=== PATIENT | male | born 1985 | race Caucasian/White ===

== ENCOUNTER 2016-10-13 12:00 | Emergency (ER) | payer SELFPAY ==
[~2016-10-13] VITALS: Ht 185.4 cm; Wt 94.8 kg
[~2016-10-13 12:00] MED LIST: ESOM20CA PO
[2016-10-13 12:04] VITALS: TEMP 36.9; Ht 185.4 cm; Wt 94.8 kg
[2016-10-13] MEDS ORDERED: XYLOCAINE 1%/SOD BICARB 20 ML VIAL INFIL ONE (12:45)
[2016-10-13] MEDS ORDERED: CEPH500C2 PO (13:12)
[2016-10-13] MEDS ORDERED: SULF800T23 PO (13:12)
[2016-10-13] MEDS ORDERED: VNTHFA/IN INH (13:14)
[2016-10-13] MEDS ORDERED: ACETAMINOPHEN 500 MG TAB PO STA (13:26)
[2016-10-13 13:37] VITALS: BP 132/76; PULSE 76; O2SAT 97
--- NOTE | 2016-10-16 09:39 | EMERGENCY ROOM VISIT NOTE ---
ED Visit Note First contact with patient: 12:08 CHIEF COMPLAINT: I have a boil on the back of my head.. HISTORY OF PRESENT ILLNESS: Mr. Sanchez is an 31-year-old white male who ambulates into the ED complaining of a possible abscess on the back of this incident. Patient reports approximately one week ago he noted a pimple-like lesion on the back of his hand. Initially there was no pain. He does report he squeezed the pimple multiple times and had some expression of pus like material. Over the last 3 days he noticed the area is slowly getting larger, more painful and tender. Currently he describes his discomfort as a pressure sensation. He rates his discomfort 7/10. Pain is nonradiating. The pain worsens with palpation. He has not identified any alleviating factors related to the pain. He has not been taken any medications for pain prior to arrival at the hospital. He denies any associated symptoms including fevers, chills, sweats, other skin eruptions, skin color changes, headaches, neck pain/stiffness, chest pain, shortness of breath, decreased appetite, abdominal/vomiting. Ongoing the patient's physical assessment his lungs sounds showed scattered coarse rhonchi and mild wheezing; ID asthma about this and he reports he had an upper respiratory tract infection going on the last few days. I did offer to assess him for his upper respiratory tract infection and he refused stating he had no insurance. He did report he would be able to get insurance quickly through his employer and follow-up with a primary care provider. I did offer treatment and he accepted formalin albuterol inhaler. REVIEW OF SYSTEMS: As noted above in History of Present Illness; 8 body systems were reviewed with the patient and found to be unremarkable unless noted above. PAST MEDICAL HISTORY: Lumbar back disease. CURRENT MEDICATIONS: Patient denies. ALLERGIES TO MEDICATION: Patient denies. SOCIAL HISTORY: Patient is currently employed; he feels safe in his home environment; he admits to tobacco and alcohol use. PHYSICAL EXAM: Vital Signs: Date Time Temp Pulse Resp B/P Pulse Ox O2 Delivery O2 Flow Rate FiO2 10/13/16 13:37 76 20 132/76 97 10/13/16 12:04 36.9 83 18 116/78 99 Room Air General: 31 year-old white male in mild distress due to pain, nontoxic appearing , afebrile and hemodynamically stable. Neurological: Awake, alert and oriented to person, place and time. Answering questions appropriately and following commands. Skin: Warm, dry and pink. Occipital scalp There is an indurated area in the occipital scalp which measures about 2.5 cm in diameter. It is fluctuant with pointing, but no drainage. There is a zone of inflammation around it but no lymphangitis. Thorax: Lungs sounds are wheezing and scattered coarse rhonchi. Equal bilaterally with symmetrical chest wall movement. No increased respiratory effort. Abdomen: Flat, soft and nontender. Positive bowel sounds in all quadrants. No guarding or rigidity. ED COURSE: Patient is assessed as noted above. Incision and Drainage: Location: Occipital scalp Verbal consent was obtained after the risks and benefits were explained. The skin was prepped with betadine and a sterile field set. The area surrounding the abscess was anesthetized with 6.7 ml of 1% buffered lidocaine. The abscess cavity was incised with a scalpel. Approximately 2 mL of purulent material was drained from the abscess and more was expressed. Aerobic cultures were obtained and are currently pending. The abscess cavity was sharply dissected with iris scissors to break up loculations and a small amount of additional purulent drainage was expressed. Copious irrigation was performed using sterile saline. The abscess cavity was cleaned out with a cotton tip applicator dipped in Betadine. Hemostasis was achieved. Iodoform gauze packing was inserted into the abscess. A sterile dressing was applied. No complications and the patient tolerated the procedure well. Patient was given 1 g of Tylenol by mouth for pain. Patient was educated about his condition and instructed on his treatment plan; he verbalized understanding and agreement with this plan. IMPRESSION: Abscess of the occipital scalp. Upper respiratory tract infection DISPOSITION: Patient discharged to home in stable condition; prior to departure he was reassessed and rated his discomfort 10/10. He was once again offered further evaluation of his lungs sounds and he refused. PLAN: Abscess Patient was encouraged to alternate ibuprofen and acetaminophen as needed for pain. Patient was prescribed Keflex 500 mg 4 times a day and Bactrim DS 2 times a day for 10 days. Patient was encouraged to keep his abscess area clean and dry. Patient was encouraged return the ED and 36-48 hours for recheck and packing removal. Patient was encouraged return the ED sooner for worsening/uncontrolled pain, fevers, increasing redness/swelling or any new/concerning symptoms. Cough Patient was prescribed an albuterol inhaler with spacers encouraged to use 2 puffs every 6 hours for 5 days and as needed. Patient was encouraged to follow-up as appropriate or return to the ED for worsening cough, worsening shortness of breath, fevers, coughing up blood or any new/concerning symptoms.
== END 2016-10-13 13:39 | disposition home or self-care (01) ==
LOC: C.EDB 12:06 → C.EDD 13:39
DX: L02.811 Cutaneous abscess of head [any part, except face] (principal); J06.9 Acute upper respiratory infection, unspecified; F17.200 Nicotine dependence, unspecified, uncomplicated

== ENCOUNTER 2016-10-15 11:06 | Emergency (ER) | payer SELFPAY ==
[~2016-10-15] VITALS: Ht 185.4 cm; Wt 96.1 kg
[~2016-10-15 11:06] MED LIST changes: +CEPH500C2 PO; -ESOM20CA PO; +SULF800T23 PO; +VNTHFA/IN INH
[2016-10-15 11:08] VITALS: BP 128/76; PULSE 68; TEMP 36.9; O2SAT 98; Ht 185.4 cm; Wt 96.1 kg
--- NOTE | 2016-10-15 11:35 | EMERGENCY ROOM VISIT NOTE ---
History Report prepared by Shanellibgiancarlo: Joe Altman Under the Supervision of: Dr. Jose De Jesus Mishra D.O. First contact with patient: 11:26 Chief Complaint: PACKING REMOVAL Stated Complaint: FOLLOW UP History of Present Illness The patient is a 31 year old male who presents to the Emergency Room for a packing removal encounter. The patient had an abscess drained on the back of his head two days ago. The patient denies any fevers or chills. He was prescribed Bactrim, which he did not fill because he could not afford it. The patient took leftover Amoxicillin at home. The patient also expresses concern over a swollen area around his eye wear he squeezed a pimple. Source of History: patient Onset: today Position: head Quality: other (packing removal) Associated Symptoms: No chills, No fevers Review of Systems See HPI for pertinent positives and negatives. A total of six systems were reviewed and were otherwise negative. Past Medical & Surgical Medical Problems: (1) Esophagitis Family History Cancer Diabetes mellitus Social History Smoking Status: Former Smoker Alcohol Use: occasionally Drug Use: none Marital Status: Housing Status: lives with family Occupation Status: employed Current/Historical Medications Scheduled Albuterol Hfa (Ventolin Hfa), 2 PUFFS INH QID Cephalexin Monohydrate (Keflex), 500 MG PO QID Sulfa/Trimethoprim (Bactrim Ds 800MG/160MG), 1 TAB PO BID Allergies Coded Allergies: No Known Allergies (Unverified , 10/15/16) Physical Exam Vital Signs Date Time Temp Pulse Resp B/P Pulse Ox O2 Delivery O2 Flow Rate FiO2 10/15/16 11:08 36.9 68 18 128/76 98 Room Air Physical Exam GENERAL: Awake, alert, well-appearing, in no distress HENT: 1 cm area with purulent brown drainage, packing in place. EYES: Infraorbital erythema and edema on the right side. Extraocular movements intact. Pupils equal round reactive to light. NECK: Supple. No nuchal rigidity. FROM. No JVD. RESPIRATORY: Clear to auscultation. CARDIAC: Regular rate, normal rhythm. Extremities warm and well perfused. Pulses equal. ABDOMEN: Soft, non-distended. No tenderness to palpation. No rebound or guarding. No masses. RECTAL: Deferred. MUSCULOSKELETAL: Chest examination reveals no tenderness. The back is symmetrical on inspection without obvious abnormality. There is no CVA tenderness to palpation. No joint edema. LOWER EXTREMITIES: Calves are equal size bilaterally and non-tender. No edema. No discoloration. NEURO: Normal sensorium. No sensory or motor deficits noted. SKIN: No rash or jaundice noted. Medical Decision & Procedures ED Course 1126: The patient was evaluated in room C3. A complete history and physical exam was performed. 1130: Packing removed. 1132: Discussed results and discharge instructions: He verbalized understanding and agreement. The patient is ready for discharge. Medical Decision Differential diagnosis includes wound recheck, packing removal, early cellulitis. Patient states to me that he has taken Amoxil he did not take the Bactrim that was prescribed is currently at the pharmacy as he stated he didn't have enough money. Patient also states that he popped a zit on the right side of his face and on exam there is a concern for infraorbital cellulitis that might be occurring however there is no evidence or orbital cellulitis at this time. I' ve instructed the patient that he needs to get the Bactrim filled as this will help his wound and will help the infection that's on his face. Scribe Attestation The scribe's documentation has been prepared under my direction and personally reviewed by me in its entirety. I confirm that the note above accurately reflects all work, treatment, procedures, and medical decision making performed by me. Departure Information Dispostion Home / Self-Care Referrals No Doctor, Assigned (PCP) Patient Instructions ED Folliculitis, ED Wound Care, My [facility] Additional Instructions Please start taking the Bactrim that was prescribed here. Continue wound care, continue to watch for signs of worsening infection right side of her face
== END 2016-10-15 11:37 | disposition home or self-care (01) ==
LOC: C.EDB 11:09 → C.EDC 11:37
DX: Z48.02 Encounter for removal of sutures (principal); K20.9 Esophagitis, unspecified; Z87.891 Personal history of nicotine dependence; Z79.899 Other long term (current) drug therapy; Z80.9 Family history of malignant neoplasm, unspecified; Z83.3 Family history of diabetes mellitus

== ENCOUNTER 2017-04-12 17:13 | Emergency (ER) | payer SELFPAY ==
[~2017-04-12] VITALS: Ht 185.4 cm; Wt 98.0 kg
[2017-04-12 17:52] VITALS: O2SAT 96
[2017-04-12] MEDS ORDERED: ALBUT/IPRATROP 3MG/0.5MG NEB 3 ML VIAL INH STA ×2 (18:19→19:33)
[2017-04-12] MEDS ORDERED: DEXAMETHASONE SOD INJ 10 MG/ML VIAL IV ONE (18:30)
--- NOTE | 2017-04-12 18:40 | DIAGNOSTIC IMAGING REPORT ---
CHEST ONE VIEW PORTABLE CLINICAL HISTORY: EVALUATE RESPIRATORY DISTRESS. DYSPNEA dyspnea COMPARISON STUDY: M 23/01/2011 FINDINGS: Poorly defined left midlung infiltrate. The lungs otherwise are clear. No evidence for cardiac enlargement. IMPRESSION: Poorly defined infiltrate left midlung The above report was generated using voice recognition software. It may contain grammatical, syntax or spelling errors. Electronically signed by: Raoul Gore M.D. 04/12/2017 6:38 PM Dictated Date/Time: 04/12/2017 6:38 PM
[2017-04-12 18:59] VITALS: Ht 185.4 cm; Wt 98.0 kg
[2017-04-12 19:24] LABS: BASO % 0.2 %; BASO ABS # 0.02 K/uL (0-0.2); COMPLETE YES; HEMATOCRIT 42.5 % (42-52); IG% 0.3 %; LYMPH % 14.8 %; LYMPH ABS # 1.72 K/uL (1.2-3.4); MEAN CORPUSCULAR HGB CONC 34.1 g/dl (32-36); MEAN PLATELET VOLUME 9.2 fL (7.4-10.4); MONO % 7.7 %; PLATELET COUNT 310 K/uL (130-400); RED BLOOD COUNT 4.83 M/uL (4.7-6.1); WHITE BLOOD COUNT 11.61 K/uL (4.8-10.8)
[2017-04-12] MEDS ORDERED: LEVOFLOXACIN 250 MG TAB PO STA (19:33)
[2017-04-12 19:40] LABS: ALT/SGPT 32 U/L (12-78); AST/SGOT 13 U/L (15-37); BLOOD UREA NITROGEN 16 mg/dl (7-18); BUN/CREATININE RATIO 14.9 (10-20); CALCIUM 9.4 mg/dl (8.5-10.1); CARBON DIOXIDE 29 mmol/L (21-32); CHLORIDE 107 mmol/L (98-107); GLUCOSE 57 mg/dl (70-99); POTASSIUM 3.9 mmol/L (3.5-5.1); SODIUM 141 mmol/L (136-145)
[2017-04-12 19:45] LABS: ALB/GLOB RATIO 0.9 (0.9-2); ALKALINE PHOSPHATASE 102 U/L (45-117)
[2017-04-12 19:47] LABS: URINE APPEARANCE CLEAR (CLEAR); URINE BILIRUBIN NEG (NEG); URINE COLOR YELLOW; URINE NITRITE NEG (NEG); URINE PH 6.5 (4.5-7.5); URINE SPECIFIC GRAVITY 1.022 (1.000-1.030); UROBILINOGEN NEG (NEG)
[2017-04-12 19:50] LABS: MANUAL MICROSCOPIC REQUIRED? NO; REVIEW REQ? NO
[2017-04-12] MEDS ORDERED: LEVO-366 PO (20:43)
[2017-04-12] MEDS ORDERED: PRED50TA PO (20:43)
[2017-04-12] MEDS ORDERED: ALBUTEROL HFA 8 GM INHALER INH ONE (20:45)
[2017-04-12 21:07] VITALS: BP 124/68; PULSE 68; TEMP 36.9; O2SAT 96
--- NOTE | 2017-04-13 00:54 | EMERGENCY ROOM VISIT NOTE ---
History Report prepared by Kay: Maria Antonia Grullon Under the Supervision of: Dr. Mehul Gooden M.D. First contact with patient: 18:03 Chief Complaint: CONGESTION Stated Complaint: TROUBLE BREATHING, BAD COUGH, MUCUS, WHEEZING Nursing Triage Summary: Pt. reports trouble breathing & wheezing off and on for three months. Also reports cough with yellow sputum. He states that he has trouble walking around because he gets short of breath. History of Present Illness The patient is a 31 year old male who presents to the Emergency Room with complaints of intermittent shortness of breath over the past year. The patient states that he noticed increased shortness of breath with exertion. He additionally notes that his shortness of breath would be alleviated with rest. The patient states that recently he has noticed increased wheezing and increased cough. He states that after an evaluation in the emergency department several months ago, he was given an albuterol inhaler for his wheezing and he notes that alleviated his symptoms. The patient states that he has not gotten his inhaler refilled. He reports that yesterday he developed a deep cough and congestion, noting that she brought up yellow sputum. The patient states that he has been breathing faster than normal and notes difficulty taking a deep breath. He states that he has been waking up at night with a cough. The patient denies any past medical history. He states that he is a former smoker. Pt denies LOC, headache, fevers, chills, diaphoresis, visual changes, neck pain, chest pain, nausea, vomiting, abdominal pain, back pain, melena, hematochezia, urinary symptoms, numbness, weakness, lymphadenopathy, rash, or other complaints. Source of History: patient Onset: past year Position: other (global) Quality: other (shortness of breath) Timing: intermittent Associated Symptoms: + cough Note: Associated Symptoms: congestion Review of Systems See HPI for pertinent positives and negatives. A total of ten systems were reviewed and were otherwise negative. Past Medical & Surgical Medical Problems: (1) Esophagitis Family History Cancer Diabetes mellitus Social History Smoking Status: Former Smoker Alcohol Use: occasionally Drug Use: none Marital Status: Housing Status: lives with family Occupation Status: employed Current/Historical Medications Scheduled Levofloxacin (Levaquin), 500 MG PO DAILY Prednisone (Prednisone), 50 MG PO DAILY Allergies Coded Allergies: No Known Allergies (Unverified , 10/15/16) Physical Exam Vital Signs Date Time Temp Pulse Resp B/P (MAP) Pulse Ox O2 Delivery O2 Flow Rate FiO2 04/12/17 21:07 36.9 68 20 124/68 96 04/12/17 21:01 68 20 124/68 96 Room Air 04/12/17 19:06 82 24 140/87 98 Room Air 04/12/17 17:52 96 Room Air 04/12/17 17:50 75 04/12/17 17:48 96 Room Air 04/12/17 17:16 36.9 92 20 122/85 94 Room Air Physical Exam GENERAL: Awake, alert, well-appearing, in no distress HENT: Normocephalic, atraumatic. Oropharynx unremarkable. EYES: Normal conjunctiva. Sclera non-icteric. NECK: Supple. No nuchal rigidity. FROM. No JVD. RESPIRATORY: Inspiratory and Expiratory wheezing. CARDIAC: Regular rate, normal rhythm. Extremities warm and well perfused. Pulses equal. ABDOMEN: Soft, non-distended. No tenderness to palpation. No rebound or guarding. No masses. RECTAL: Deferred. MUSCULOSKELETAL: Chest examination reveals no tenderness. The back is symmetrical on inspection without obvious abnormality. There is no CVA tenderness to palpation. No joint edema. LOWER EXTREMITIES: Calves are equal size bilaterally and non-tender. No edema. No discoloration. NEURO: Normal sensorium. No sensory or motor deficits noted. SKIN: Dry tinea rash on the face. No jaundice noted. Medical Decision & Procedures ER Provider Diagnostic Interpretation: X-ray: Per my interpretation, radiologist review. CHEST ONE VIEW PORTABLE CLINICAL HISTORY: EVALUATE RESPIRATORY DISTRESS. DYSPNEA dyspnea COMPARISON STUDY: 23/01/2011 FINDINGS: Poorly defined left midlung infiltrate. The lungs otherwise are clear. No evidence for cardiac enlargement. IMPRESSION: Poorly defined infiltrate left midlung The above report was generated using voice recognition software. It may contain grammatical, syntax or spelling errors. Electronically signed by: Raoul Gore M.D. 04/12/2017 6:38 PM Dictated Date/Time: 04/12/2017 6:38 PM Laboratory Results 04/12/17 18:50 Red Blood Count 4.83, Mean Corpuscular Volume 88.0, Mean Corpuscular Hemoglobin 30.0, Mean Corpuscular Hemoglobin Concent 34.1, Mean Platelet Volume 9.2, Neutrophils (%) (Auto) 70.0, Lymphocytes (%) (Auto) 14.8, Monocytes (%) (Auto) 7.7, Eosinophils (%) (Auto) 7.0, Basophils (%) (Auto) 0.2, Neutrophils # (Auto) 8.14, Lymphocytes # (Auto) 1.72, Monocytes # (Auto) 0.89, Eosinophils # (Auto) 0.81, Basophils # (Auto) 0.02 04/12/17 18:50 Test 04/12/17 18:50 04/12/17 19:35 04/12/17 20:15 White Blood Count 11.61 K/uL (4.8-10.8) Red Blood Count 4.83 M/uL (4.7-6.1) Hemoglobin 14.5 g/dL (14.0-18.0) Hematocrit 42.5 % (42-52) Mean Corpuscular Volume 88.0 fL (80-100) Mean Corpuscular Hemoglobin 30.0 pg (25-34) Mean Corpuscular Hemoglobin Concent 34.1 g/dl (32-36) Platelet Count 310 K/uL (130-400) Mean Platelet Volume 9.2 fL (7.4-10.4) Neutrophils (%) (Auto) 70.0 % Lymphocytes (%) (Auto) 14.8 % Monocytes (%) (Auto) 7.7 % Eosinophils (%) (Auto) 7.0 % Basophils (%) (Auto) 0.2 % Neutrophils # (Auto) 8.14 K/uL (1.4-6.5) Lymphocytes # (Auto) 1.72 K/uL (1.2-3.4) Monocytes # (Auto) 0.89 K/uL (0.11-0.59) Eosinophils # (Auto) 0.81 K/uL (0-0.5) Basophils # (Auto) 0.02 K/uL (0-0.2) RDW Standard Deviation 40.6 fL (36.4-46.3) RDW Coefficient of Variation 12.6 % (11.5-14.5) Immature Granulocyte % (Auto) 0.3 % Immature Granulocyte # (Auto) 0.03 K/uL (0.00-0.02) Anion Gap 5.0 mmol/L (3-11) Est Creatinine Clear Calc Drug Dose 117.7 ml/min Estimated GFR () 101.7 Estimated GFR (Non- 87.7 BUN/Creatinine Ratio 14.9 (10-20) Calcium Level 9.4 mg/dl (8.5-10.1) Total Bilirubin 0.4 mg/dl (0.2-1) Aspartate Amino Transf (AST/SGOT) 13 U/L (15-37) Alanine Aminotransferase (ALT/SGPT) 32 U/L (12-78) Alkaline Phosphatase 102 U/L (45-117) Troponin I < 0.015 ng/ml (0-0.045) Total Protein 8.1 gm/dl (6.4-8.2) Albumin 3.8 gm/dl (3.4-5.0) Globulin 4.3 gm/dl (2.5-4.0) Albumin/Globulin Ratio 0.9 (0.9-2) Urine Color YELLOW Urine Appearance CLEAR (CLEAR) Urine pH 6.5 (4.5-7.5) Urine Specific [place] 1.022 (1.000-1.030) Urine Protein NEG (NEG) Urine Glucose (UA) NEG (NEG) Urine Ketones NEG (NEG) Urine Occult Blood NEG (NEG) Urine Nitrite NEG (NEG) Urine Bilirubin NEG (NEG) Urine Urobilinogen NEG (NEG) Urine Leukocyte Esterase NEG (NEG) Bedside Glucose 123 mg/dl (70-99) Laboratory results reviewed by me Medications Administered Medications (Trade) Dose Ordered Sig/Ben Route Start Time Stop Time Status Last Admin Dose Admin Albuterol/ Ipratropium (Duoneb) 3 ml NOW STAT INH 04/12/17 18:19 04/12/17 18:20 DC 04/12/17 18:53 3 ML Dexamethasone Sodium Phosphate (Decadron Inj) 10 mg NOW ONCE IV 04/12/17 18:30 04/12/17 18:31 DC 04/12/17 18:53 10 MG Albuterol/ Ipratropium (Duoneb) 3 ml NOW STAT INH 04/12/17 19:33 04/12/17 19:35 DC 04/12/17 19:44 3 ML Levofloxacin (Levaquin Tab) 500 mg NOW STAT PO 04/12/17 19:33 04/12/17 19:35 DC 04/12/17 19:43 500 MG Albuterol (Ventolin Hfa Inhaler) 2 puffs NOW ONCE INH 04/12/17 20:45 04/12/17 20:46 DC 04/12/17 21:00 2 PUFFS ECG Indication: SOB/dyspnea Rate (beats per minute): 66 Rhythm: normal sinus Findings: no acute ischemic change, no ectopy ED Course 1804: The patient was evaluated in room B5. A complete history and physical exam was performed by the medical student. 1818: Ordered DuoNeb 3 lm INH. 1819: The patient was evaluated in room B5. A complete history and physical exam was performed. 1829: Ordered Decadron Inj 10 mg IV. 1932: Ordered Levaquin Tab 500 mg PO, DuoNeb 3 ml INH. 1934: I reevaluated the patient and he is resting, feeling a lot better. 2044: I reevaluated the patient and he is resting comfortably. I discussed the exam findings with him and I discussed the treatment plan. He verbalized complete understanding and agreement. He is ready to go home. Ordered Albuterol 2 puffs INH. Medical Decision Triage Nursing notes reviewed. The patient's presentation and history were concerning for breathing difficulties. Etiologies such as pneumonia, COPD, reactive airway disease, CHF, cardiac ischemia, pulmonary embolism, pneumothorax, musculoskeletal, infections, gastrointestinal, as well as others were entertained. ' The patient was evaluated. He was wheezing. He is given a DuoNeb and Decadron. Chest x-ray was performed and revealed an infiltrate. His CBC, chemistry panel and remainder blood work were unremarkable. Patient was given a second DuoNeb and felt significantly better. Peak flows improved. He will need close outpatient follow-up. He was referred to [facility] internal medicine. The patient was given an albuterol MDI. He'll be treated with Levaquin and prednisone. The first dose of Levaquin was given in the Emergency Room. He worsens in any way he will be back. I gave my usual and customary discussion regarding this issue. By the evaluation outlined above other emergent etiologies such as those listed in the differential, as well as others, were deemed relatively unlikely. The patient was educated about the findings as listed above. All questions were answered and the patient was pleased with the treatment. Return instructions were outlined and the patient was discharged in stable condition. The patient was referred to [facility] for follow-up for a recheck of the current condition. Medication Reconcilliation Current Medication List: was personally reviewed by me Blood Pressure Screening Patient's blood pressure: Elevated blood pressure Blood pressure disposition: Referred to PCP Impression Primary Impression: Pneumonia Additional Impression: Reactive airway disease Scribe Attestation The scribe's documentation has been prepared under my direction and personally reviewed by me in its entirety. I confirm that the note above accurately reflects all work, treatment, procedures, and medical decision making performed by me. Departure Information Dispostion Home / Self-Care Prescriptions Levofloxacin (Levaquin) 500 Mg Tab 500 MG PO DAILY for 9 Days, #9 TAB Prov: Mehul Gooden MD 04/12/17 Prednisone (Prednisone) 50 Mg Tab 50 MG PO DAILY for 4 Days, #4 TAB Prov: Mehul Gooden MD 04/12/17 Referrals No Doctor, Assigned (PCP) Forms HOME CARE DOCUMENTATION FORM, IMPORTANT VISIT INFORMATION Patient Instructions My [facility] Additional Instructions PNEUMONIA INSTRUCTIONS: Levafloxacin(Levaquin) 500mg: Take one pill daily for 9 days for your infection. All antibiotics can cause diarrhea. If this occurs and you feel worse or it does not resolve in 1-2 days follow up with your doctor or return to the Emergency Department as this could be signs of serious underlying problems. Any medication can cause an allergic reaction, stop the pills immediately and return to the ER for rash, hives, breathing difficulties, or swelling. Prednisone 50 mg: Once daily until the prescription is finished. Albuterol Inhaler: Take 2 puffs four times daily for seven days, then as needed. Acetaminophen(Tylenol) may be used for fever or pain. Use 1000mg every six hours as needed. Avoid using more than 4000mg in a 24 hour period. AND/OR Ibuprofen(Motrin, Advil) may be used for fever or pain. Use 600mg every six hours as needed. Take with food. Avoid using more than 2400mg in a 24 hour period. Do not use 2400mg per day for more than three consecutive days without physician direction. Prolonged inappropriate use can lead to stomach upset or ulcers. Controlling your fever with Tylenol and Ibuprofen as above will make you feel better. Rest and drink plenty of fluids. Avoid strenuous activity until your symptoms resolve and your breathing returns to normal. Return to the ER for chest pain, difficulty breathing, persistent fevers, vomiting, worsening of your condition, or as needed. Follow-up with [facility] internal medicine to schedule an appointment. Call [phone] for assistance. Problem Qualifiers
== END 2017-04-12 21:08 | disposition home or self-care (01) ==
LOC: C.EDB 17:14
DX: J18.9 Pneumonia, unspecified organism (principal); J45.909 Unspecified asthma, uncomplicated; Z87.891 Personal history of nicotine dependence; Z83.3 Family history of diabetes mellitus

== ENCOUNTER 2017-06-04 15:00 | Emergency (ER) | payer SELFPAY ==
[~2017-06-04] VITALS: Ht 185.4 cm; Wt 98.3 kg
[2017-06-04 15:05] VITALS: TEMP 36.9; Ht 185.4 cm; Wt 98.3 kg
[2017-06-04] MEDS ORDERED: DEXAMETHASONE SOD INJ 4 MG/ML VIAL IV STA (15:19)
[2017-06-04] MEDS ORDERED: ALBUT/IPRATROP 3MG/0.5MG NEB 3 ML VIAL INH STA (15:19)
[2017-06-04 15:47] LABS: BASO % 0.3 %; BASO ABS # 0.02 K/uL (0-0.2); COMPLETE YES; EOS % 11.6 %; HEMATOCRIT 42.4 % (42-52); IG% 0.3 %; LYMPH % 28.5 %; LYMPH ABS # 1.99 K/uL (1.2-3.4); MEAN CELL VOLUME 85.8 fL (80-100); MEAN CORPUSCULAR HEMOGLOBIN 29.8 pg (25-34); MEAN CORPUSCULAR HGB CONC 34.7 g/dl (32-36); MEAN PLATELET VOLUME 9.1 fL (7.4-10.4); MONO % 7.2 %; NEUT % 52.1 %; PLATELET COUNT 247 K/uL (130-400); RED BLOOD COUNT 4.94 M/uL (4.7-6.1); WHITE BLOOD COUNT 6.98 K/uL (4.8-10.8)
--- NOTE | 2017-06-04 16:02 | DIAGNOSTIC IMAGING REPORT ---
CHEST 2 VIEWS ROUTINE CLINICAL HISTORY: 32 years-old Male presenting with cough, sob. TECHNIQUE: PA and lateral views of the chest were obtained. COMPARISON: None. FINDINGS: Cardiomediastinal silhouette normal. Lungs and pleural spaces clear. Osseous structures normal. Upper abdomen normal. IMPRESSION: 1. No acute cardiopulmonary disease. Electronically signed by: Hernan Martinez M.D. 06/04/2017 4:01 PM Dictated Date/Time: 06/04/2017 4:01 PM
[2017-06-04 16:05] LABS: BUN/CREATININE RATIO 12.1 (10-20); CALCIUM 9.1 mg/dl (8.5-10.1); POTASSIUM 3.9 mmol/L (3.5-5.1)
[2017-06-04 16:08] LABS: ALB/GLOB RATIO 1.1 (0.9-2)
[2017-06-04] MEDS ORDERED: AZITTAB PO (16:54)
[2017-06-04] MEDS ORDERED: METH4PAK PO (16:54)
[2017-06-04] MEDS ORDERED: VNTHFA/IN INH (16:54)
--- NOTE | 2017-06-04 16:58 | EMERGENCY ROOM VISIT NOTE ---
History First contact with patient: 15:08 Chief Complaint: RESPIRATORY PROBLEMS Stated Complaint: PENUMONIA, HARD TO BREATHE, TREATED BEG. April Nursing Triage Summary: pnx 1 month ago. Pt improved with treatment. States symptoms have returned within the last week. Chest tightness, SOB, cough. History of Present Illness The patient is a 32 year old male who presents to the Emergency Room with complaints of cough, shortness of breath and chest tightness. The patient reports that he was treated last month for pneumonia with Levaquin and prednisone. He states his symptoms have returned 2-3 weeks ago and he is concerned that he was not fully treated. He reports shortness of breath which is worse when lying down and tightness in the chest. He has had a cough. The patient does not report a history of asthma. He has been trying to follow-up with a primary care provider but is having issues with insurance. He denies any fevers/chills, abdominal pain, nausea or vomiting. Review of Systems A complete 10 point review of systems was reviewed with the patient with pertinent positives and negatives as per history of present illness. All else were negative. Past Medical/Surgical History Medical Problems: (1) Esophagitis Family History Cancer Diabetes mellitus Social History Smoking Status: Never Smoker Alcohol Use: occasionally Drug Use: none Marital Status: Housing Status: lives with family Occupation Status: employed Current/Historical Medications Scheduled Albuterol Hfa (Ventolin Hfa), 2 PUFFS INH QID Azithromycin (Zithromax Z-Onur), 0 PO UD Methylprednisolone (Medrol Dosepak), 0 PO DAILY Physical Exam Vital Signs Date Time Temp Pulse Resp B/P (MAP) Pulse Ox O2 Delivery O2 Flow Rate FiO2 06/04/17 17:59 88 16 134/78 98 06/04/17 15:43 98 06/04/17 15:05 36.9 72 17 115/66 96 Room Air Physical Exam VITALS: Vitals are noted on the nurse's note and reviewed by myself. Vital signs stable. GENERAL: This is a 32-year-old male, in no acute distress, nondiaphoretic, well- developed well-nourished. SKIN: The skin was without rashes. EARS: External auditory canals clear, tympanic membranes pearly faulkner without erythema or effusion bilaterally. EYES: Pupils equal round and reactive to light and accommodation. MOUTH: Mucous membranes moist. Tonsils are not enlarged. Pharynx without erythema or exudate. NECK: Supple without nuchal rigidity. No lymphadenopathy. HEART: Regular rate and rhythm without murmurs gallops or rubs. LUNGS: There are expiratory wheezes throughout all lung thakur. No retractions or accessory muscle use. NEURO: Patient was alert and oriented to person place and time. Medical Decision & Procedures ER Provider Diagnostic Interpretation: CHEST 2 VIEWS ROUTINE CLINICAL HISTORY: 32 years-old Male presenting with cough, sob. TECHNIQUE: PA and lateral views of the chest were obtained. COMPARISON: None. FINDINGS: Cardiomediastinal silhouette normal. Lungs and pleural spaces clear. Osseous structures normal. Upper abdomen normal. IMPRESSION: 1. No acute cardiopulmonary disease. Laboratory Results 06/04/17 15:31 Red Blood Count 4.94, Mean Corpuscular Volume 85.8, Mean Corpuscular Hemoglobin 29.8, Mean Corpuscular Hemoglobin Concent 34.7, Mean Platelet Volume 9.1, Neutrophils (%) (Auto) 52.1, Lymphocytes (%) (Auto) 28.5, Monocytes (%) (Auto) 7.2, Eosinophils (%) (Auto) 11.6, Basophils (%) (Auto) 0.3, Neutrophils # (Auto ) 3.64, Lymphocytes # (Auto) 1.99, Monocytes # (Auto) 0.50, Eosinophils # (Auto ) 0.81, Basophils # (Auto) 0.02 06/04/17 15:31 Test 06/04/17 15:30 06/04/17 15:31 Influenza Type A Antigen Neg for Influ A (NEG) Influenza Type B Antigen Neg for Influ B (NEG) White Blood Count 6.98 K/uL (4.8-10.8) Red Blood Count 4.94 M/uL (4.7-6.1) Hemoglobin 14.7 g/dL (14.0-18.0) Hematocrit 42.4 % (42-52) Mean Corpuscular Volume 85.8 fL (80-100) Mean Corpuscular Hemoglobin 29.8 pg (25-34) Mean Corpuscular Hemoglobin Concent 34.7 g/dl (32-36) Platelet Count 247 K/uL (130-400) Mean Platelet Volume 9.1 fL (7.4-10.4) Neutrophils (%) (Auto) 52.1 % Lymphocytes (%) (Auto) 28.5 % Monocytes (%) (Auto) 7.2 % Eosinophils (%) (Auto) 11.6 % Basophils (%) (Auto) 0.3 % Neutrophils # (Auto) 3.64 K/uL (1.4-6.5) Lymphocytes # (Auto) 1.99 K/uL (1.2-3.4) Monocytes # (Auto) 0.50 K/uL (0.11-0.59) Eosinophils # (Auto) 0.81 K/uL (0-0.5) Basophils # (Auto) 0.02 K/uL (0-0.2) RDW Standard Deviation 40.0 fL (36.4-46.3) RDW Coefficient of Variation 12.8 % (11.5-14.5) Immature Granulocyte % (Auto) 0.3 % Immature Granulocyte # (Auto) 0.02 K/uL (0.00-0.02) Anion Gap 5.0 mmol/L (3-11) Est Creatinine Clear Calc Drug Dose 128.4 ml/min Estimated GFR () 113.3 Estimated GFR (Non- 97.8 BUN/Creatinine Ratio 12.1 (10-20) Calcium Level 9.1 mg/dl (8.5-10.1) Total Bilirubin 0.4 mg/dl (0.2-1) Aspartate Amino Transf (AST/SGOT) 11 U/L (15-37) Alanine Aminotransferase (ALT/SGPT) 27 U/L (12-78) Alkaline Phosphatase 109 U/L (45-117) Total Protein 7.6 gm/dl (6.4-8.2) Albumin 3.9 gm/dl (3.4-5.0) Globulin 3.7 gm/dl (2.5-4.0) Albumin/Globulin Ratio 1.1 (0.9-2) Medications Administered Medications (Trade) Dose Ordered Sig/Ben Route Start Time Stop Time Status Last Admin Dose Admin Dexamethasone Sodium Phosphate (Decadron Inj) 10 mg NOW STAT IV 06/04/17 15:19 06/04/17 15:20 DC 06/04/17 15:48 10 MG Albuterol/ Ipratropium (Duoneb) 3 ml NOW STAT INH 06/04/17 15:19 06/04/17 15:20 DC 06/04/17 15:48 3 ML ED Course The patient was evaluated as above. Labs were drawn and IV access was obtained. Patient was medicated with a DuoNeb treatment and IV Decadron. Patient was reevaluated and stated he had some improvement. A repeat examination revealed improvement of his lung exam. Discharge instructions were reviewed with the patient. The patient verbalized understanding of my assessment and treatment plan and was discharged home in good condition. Medical Decision Differential diagnosis includes pneumonia, bronchitis, influenza, asthma exacerbation, COPD exacerbation, among others. The patient is a 32-year-old male who presents today complaining of cough, wheezing and shortness of breath. Labs were unremarkable. There is no leukocytosis. Influenza testing was negative. Chest x-ray showed no evidence of pneumonia. Patient was treated with a DuoNeb treatment and Decadron with relief. Patient will be treated with bronchitis, however I do question whether there may be some underlying asthma, as the patient has diffuse wheezes on exam. He was advised to follow-up with a primary care provider regarding this. Based on the patient's presentation and work up, I feel the patient is stable for outpatient treatment. The patient was educated to return to the emergency department for any worsening of their current condition or new/concerning symptoms. He will follow up with his PCP. Medication Reconcilliation Current Medication List: was personally reviewed by me Blood Pressure Screening Patient's blood pressure: Normal blood pressure Impression Primary Impression: Acute bronchitis Departure Information Dispostion Home / Self-Care Condition GOOD Prescriptions Albuterol Hfa (VENTOLIN HFA) 200 Puffs/56268 Mcg Aers 2 PUFFS INH QID, #1 INHALER Prov: Liat Dwyer PA-C 06/04/17 Methylprednisolone (MEDROL DOSEPAK) 4 Mg Onur 0 PO DAILY, #1 PKT Prov: Liat Dwyer PA-C 06/04/17 Azithromycin (ZITHROMAX Z-ONUR) 250 Mg Tab 0 PO UD, #1 PKT 2 TABS DAY 1, THEN 1 TAB DAILY FOR 4 DAYS Prov: Liat Dwyer PA-C 06/04/17 Referrals No Doctor, Assigned (PCP) Patient Instructions My [facility] Additional Instructions Take all medications as prescribed. Use the inhaler as needed for cough/shortness of breath. You should follow-up with the primary care provider regarding your respiratory symptoms. Return to the emergency department for any worsening shortness of breath, chest pain, high fevers or any other new/concerning symptoms.
[2017-06-04 17:59] VITALS: BP 134/78; PULSE 88; O2SAT 98
== END 2017-06-04 17:59 | disposition home or self-care (01) ==
LOC: C.EDB 15:01 → C.EDC 17:59
DX: J20.9 Acute bronchitis, unspecified (principal); K20.9 Esophagitis, unspecified; Z80.9 Family history of malignant neoplasm, unspecified; Z83.3 Family history of diabetes mellitus

== ENCOUNTER 2017-06-13 09:54 | Emergency (ER) | payer SELFPAY ==
[~2017-06-13] VITALS: Ht 185.4 cm; Wt 97.5 kg
[~2017-06-13 09:54] MED LIST changes: +AZITTAB PO; -CEPH500C2 PO; +METH4PAK PO; -SULF800T23 PO
[2017-06-13 10:10] VITALS: Ht 185.4 cm; Wt 97.5 kg
[2017-06-13] MEDS ORDERED: XYLOCAINE 1%/SOD BICARB 20 ML VIAL INFIL ONE (11:15)
[2017-06-13 11:54] LABS: BASO % 0.1 %; BASO ABS # 0.01 K/uL (0-0.2); COMPLETE YES; EOS % 6.4 %; HEMATOCRIT 39.5 % (42-52); IG% 0.7 %; LYMPH % 27.5 %; MEAN CELL VOLUME 86.8 fL (80-100); MEAN CORPUSCULAR HEMOGLOBIN 29.7 pg (25-34); MEAN CORPUSCULAR HGB CONC 34.2 g/dl (32-36); MEAN PLATELET VOLUME 8.9 fL (7.4-10.4); MONO % 8.5 %; NEUT % 56.8 %; PLATELET COUNT 263 K/uL (130-400); RED BLOOD COUNT 4.55 M/uL (4.7-6.1); WHITE BLOOD COUNT 10.53 K/uL (4.8-10.8)
[2017-06-13 12:07] LABS: BUN/CREATININE RATIO 16.6 (10-20); CREATININE 0.98 mg/dl (0.60-1.40); POTASSIUM 3.3 mmol/L (3.5-5.1)
[2017-06-13] MEDS ORDERED: PIPERACILLIN/TAZOBACTAM 4.5 GM/100ML D5W IV STA (12:30)
[2017-06-13] MEDS ORDERED: SULFAMETHOXAZOLE/TRIMETHOPRIM DS 800/160MG TAB PO ONE (12:30)
[2017-06-13] MEDS ORDERED: IBUP-1427 PO (12:36)
[2017-06-13] MEDS ORDERED: SULF800T23 PO (12:36)
[2017-06-13] MEDS ORDERED: CEPH500C PO (12:36)
--- NOTE | 2017-06-13 12:58 | EMERGENCY ROOM VISIT NOTE ---
History Report prepared by Kay: Hollie Garcia Under the Supervision of: Dr. Ernesto Salazar M.D. First contact with patient: 10:59 Chief Complaint: WOUND INFECTION Stated Complaint: INFECTION ON R LEG, BLEEDING, OOZING Nursing Triage Summary: triage note: Pt ambulatory to triage. pt reports "i am pretty sure i have an infected hair in my inner right thigh it is all swollen and has a head and it broke up and it is draining bloody. History of Present Illness The patient is a 32 year old male who presents to the Emergency Room with complaints of a wound infection on the inside of the right lower extremity. He states that he first noticed the area 3-4 days ago. The patient states that the draining started last night and "would not stop". It has continued draining today and he has a bandage in place. He is complaining of his leg feeling sore. The patient rates his pain as a 4/10 in severity. He states that he felt warm yesterday but did not check his temperature. Patient denies any chills, nausea, or vomiting. The patient had an abscess on the back of his head that he had drained about a year ago. Source of History: patient Onset: 3-4 days ago Position: leg (right) Symptom Intensity: 4/10 Quality: other (sore) Timing: worsening Associated Symptoms: No chills, No nausea, No vomiting Review of Systems All systems have been listed, reviewed, and are negative other than those previously mentioned. Please see Additional Medical History Sheet. Past Medical & Surgical Medical Problems: (1) Acute bronchitis (2) Esophagitis (3) Pneumonia (4) Reactive airway disease Family History Cancer Diabetes mellitus Hypertension Seizures Social History Smoking Status: Unknown if Ever Smoked Smokeless Tobacco Use: Unknown Alcohol Use: none Drug Use: none Housing Status: lives alone Occupation Status: employed Current/Historical Medications Scheduled Albuterol Hfa (Ventolin Hfa), 2 PUFFS INH QID Cephalexin Monohydrate (Keflex), 500 MG PO QID Sulfa/Trimethoprim (Bactrim Ds 800MG/160MG), 1 TAB PO BID Scheduled PRN Ibuprofen Tab (Motrin), 600 MG PO Q6H PRN for Pain Allergies Coded Allergies: No Known Allergies (Unverified , 06/13/17) Physical Exam Vital Signs Date Time Temp Pulse Resp B/P (MAP) Pulse Ox O2 Delivery O2 Flow Rate FiO2 06/13/17 14:21 36.6 61 18 99/69 98 06/13/17 12:15 65 18 117/62 97 06/13/17 10:10 36.6 67 18 105/72 96 Room Air Physical Exam GENERAL: Patient awake, alert, oriented x 3. Patient follows commands. Patient does not appear toxic. Patient is adequately hydrated and well- nourished. SKIN: No erythema, pallor, cyanosis or rash HEENT: Normal head, pupils equal, reactive to light and accommodation. Ears normal. Oral cavity and posterior pharynx appear normal. Neck: Without adenopathy, no neck vein distention. LUNGS: Slight wheeze on the right side, no rales, no rhonchi. HEART: No murmurs. No gallops. No rubs ABDOMEN: Soft, nontender. EXTREMITIES: 10cm in diameter on medial aspect of right upper thigh, tender, erythematous, swollen. NEUROLOGIC: Cranial nerves II-XII within normal limits. No gross motor sensory function deficits. Medical Decision & Procedures Laboratory Results 06/13/17 11:15 Red Blood Count 4.55, Mean Corpuscular Volume 86.8, Mean Corpuscular Hemoglobin 29.7, Mean Corpuscular Hemoglobin Concent 34.2, Mean Platelet Volume 8.9, Neutrophils (%) (Auto) 56.8, Lymphocytes (%) (Auto) 27.5, Monocytes (%) (Auto) 8.5, Eosinophils (%) (Auto) 6.4, Basophils (%) (Auto) 0.1, Neutrophils # (Auto) 5.99, Lymphocytes # (Auto) 2.90, Monocytes # (Auto) 0.89, Eosinophils # (Auto) 0.67, Basophils # (Auto) 0.01 06/13/17 11:15 Test 06/13/17 11:15 White Blood Count 10.53 K/uL (4.8-10.8) Red Blood Count 4.55 M/uL (4.7-6.1) Hemoglobin 13.5 g/dL (14.0-18.0) Hematocrit 39.5 % (42-52) Mean Corpuscular Volume 86.8 fL (80-100) Mean Corpuscular Hemoglobin 29.7 pg (25-34) Mean Corpuscular Hemoglobin Concent 34.2 g/dl (32-36) Platelet Count 263 K/uL (130-400) Mean Platelet Volume 8.9 fL (7.4-10.4) Neutrophils (%) (Auto) 56.8 % Lymphocytes (%) (Auto) 27.5 % Monocytes (%) (Auto) 8.5 % Eosinophils (%) (Auto) 6.4 % Basophils (%) (Auto) 0.1 % Neutrophils # (Auto) 5.99 K/uL (1.4-6.5) Lymphocytes # (Auto) 2.90 K/uL (1.2-3.4) Monocytes # (Auto) 0.89 K/uL (0.11-0.59) Eosinophils # (Auto) 0.67 K/uL (0-0.5) Basophils # (Auto) 0.01 K/uL (0-0.2) RDW Standard Deviation 41.6 fL (36.4-46.3) RDW Coefficient of Variation 13.2 % (11.5-14.5) Immature Granulocyte % (Auto) 0.7 % Immature Granulocyte # (Auto) 0.07 K/uL (0.00-0.02) Anion Gap 7.0 mmol/L (3-11) Est Creatinine Clear Calc Drug Dose 130.6 ml/min Estimated GFR () 116.1 Estimated GFR (Non- 100.2 BUN/Creatinine Ratio 16.6 (10-20) Calcium Level 9.0 mg/dl (8.5-10.1) Laboratory results as stated above per my review. Medications Administered Medications (Trade) Dose Ordered Sig/Ben Route Start Time Stop Time Status Last Admin Dose Admin Piperacillin Sod/ Tazobactam Sod (Zosyn Iv) 4.5 gm NOW STAT IV 06/13/17 12:30 06/13/17 12:33 DC 06/13/17 12:41 4.5 GM Trimethoprim/ Sulfamethoxazole (Septra Ds 800/ 160MG Tab) 1 tab NOW ONCE PO 06/13/17 12:30 06/13/17 12:33 DC 06/13/17 12:42 1 TAB Procedure Incision & Drainage Indication: Abscess. Location: Medial aspect of right upper thigh Verbal consent was obtained. The skin was prepped with betadine and a sterile field set. The wound was anesthetized with 5 ml of 1% lidocaine without epinephrine. A 5mm incision was made, bluntly dissected and released pus and blood. Copious irrigation was performed using NSS. The wound was explored for foreign bodies and none found. Everett drain was placed and a sterile dressing applied. Detailed wound care instructions and signs and symptoms of worsening infection reviewed with the patient. No complications and the patient tolerated the procedure well. ED Course 1059: Past medical records reviewed. The patient was evaluated in room C9. A complete history and physical examination was performed. 1115: Lidocaine HCl 4 ml INFIL. 1210: At this time I performed an incision and drainage procedure. Please see the procedure note above for further details. 1230: Septra Ds 800/160 MG Tab 1 tab PO, Zosyn 4.5 gm IV. 1346: Upon reevaluation, the patient appeared to have improvement of his symptoms. I discussed today's findings with him. He verbalized agreement of the treatment plan. He was discharged home. Medical Decision Nurses notes reviewed. Medical history sheet reviewed. Differential diagnosis includes but is not limited to: abscess, MRSA vs other bacterial pathogens, sepsis. Patient has a large right inguinal/inner thigh abscess. He has had an abscess on his head in the past that required I&D. Patient denies fever. Labs were evaluated. Please see above. The abscess was drained and a Everett was placed. The patient was given IV Zosyn plus oral Bactrim. He will continue Bactrim at home plus Keflex. The patient's return here in 2 days to have the Everett removed. Medication Reconcilliation Current Medication List: was personally reviewed by me Blood Pressure Screening Patient's blood pressure: Normal blood pressure Impression Primary Impression: Abscess of right groin Scribe Attestation The scribe's documentation has been prepared under my direction and personally reviewed by me in its entirety. I confirm that the note above accurately reflects all work, treatment, procedures, and medical decision making performed by me. Departure Information Dispostion Home / Self-Care Prescriptions Ibuprofen Tab (MOTRIN) 600 Mg Tab 600 MG PO Q6H Y for Pain, #20 TAB Prov: Ernesto Salazar M.D. 06/13/17 Cephalexin Monohydrate (Keflex) 500 Mg Cap 500 MG PO QID, #40 CAP Prov: Ernesto Salazar M.D. 06/13/17 Sulfa/Trimethoprim (Bactrim Ds 800MG/160MG) Tab 1 TAB PO BID, #19 TAB Prov: Ernesto Salazar M.D. 06/13/17 Referrals No Doctor, Assigned (PCP) Forms HOME CARE DOCUMENTATION FORM, IMPORTANT VISIT INFORMATION, WORK / SCHOOL INSTRUCTIONS Patient Instructions My [facility] Additional Instructions 1 Bactrim twice a day for 10 days. 500 mg Keflex 4 times a day for 10 days. Leave the bandage in place until you are seen here in 2 days. 600 mg ibuprofen every 6 hours as needed for pain.
[2017-06-13 14:21] VITALS: BP 99/69; PULSE 61; TEMP 36.6; O2SAT 98
--- NOTE | 2017-06-15 18:14 | Pharmacy Progress Note ---
ED Pharmacist Culture FollowUp Date of Service: Jun 15, 2017. Patient was sent home with a prescription for bactrim and cephalexin X 10 days, which should cover the MRSA growing from the patient's wound culture. Patient also had I &D while here and is due for repacking in next day or two. After discussing with Dr. Vargas, I called the patient to inform him of culture result and let him know he could stop taking cephalexin but should continue with the course of bactrim as prescribed.
== END 2017-06-13 14:24 | disposition home or self-care (01) ==
LOC: C.EDB 09:55 → C.EDC 14:24
DX: L02.214 Cutaneous abscess of groin (principal); K20.9 Esophagitis, unspecified; J45.909 Unspecified asthma, uncomplicated; Z80.9 Family history of malignant neoplasm, unspecified; Z83.3 Family history of diabetes mellitus; Z82.49 Family history of ischemic heart disease and other diseases of the circulatory system; Z82.0 Family history of epilepsy and other diseases of the nervous system

== ENCOUNTER 2017-06-15 09:11 | Emergency (ER) | payer SELFPAY ==
[~2017-06-15] VITALS: Ht 185.4 cm; Wt 98.0 kg
[~2017-06-15 09:11] MED LIST changes: +CEPH500C PO; +IBUP-1427 PO; +SULF800T23 PO
[2017-06-15 09:14] VITALS: BP 136/89; PULSE 71; TEMP 36.5; O2SAT 99; Ht 185.4 cm; Wt 98.0 kg
--- NOTE | 2017-06-15 10:07 | EMERGENCY ROOM VISIT NOTE ---
ED Visit Note First contact with patient: 09:43 CHIEF COMPLAINT: Benedict drain HISTORY OF PRESENT ILLNESS: This 32-year-old male patient presents to the emergency department, ambulatory, for packing removal of an abscess of his right inner thigh. The patient had a Benedict drain placed 2 days ago and was instructed to return in 48 hours for removal. Previous care outlined has been followed without difficulty. States they're still has been a significant amount of drainage, however the pain and redness has improved significantly. He denies any fever, chills, nausea, vomiting, or other concerning symptoms. REVIEW OF SYSTEMS: A 6 system review of systems was completed with positives and pertinent negatives listed in the HPI. ALLERGIES: None MEDICATIONS: None. The patient states he has not picked up his antibiotics yet due to financial constraints. PMH: Unchanged from previous visit. PHYSICAL EXAM: Vital Signs reviewed, see Nurse's notes. Patient is afebrile, vital signs stable. GENERAL: This is a 32-year-old white male, awake, alert, well appearing, no acute distress SKIN: Everett drain is in place in the right inner thigh. There is mild continued purulent discharge. The redness has significantly decreased. The wound is healing well. NEURO: No sensory or motor deficits noted. EMERGENCY DEPARTMENT COURSE AND DECISION MAKING: I examined the patient. The Benedict drain was removed from the right inner thigh. The wound is healing well. Regular iodoform packing was placed and the wound was covered with a bulky dressing. I did review the culture results and they did grow out MRSA. The patient was encouraged to cone picker the Bactrim and begin taking it as soon as possible. Discharge instructions reviewed. Discharged in stable condition. DIFFERENTIAL DIAGNOSIS: Packing removal, abscess, cellulitis, and others DIAGNOSIS: Packing removal/replacement Problem List Medical Problems: (1) Acute bronchitis Status: Resolved (2) Esophagitis Status: Resolved (3) Pneumonia Status: Resolved (4) Reactive airway disease Status: Resolved Current/Historical Medications Scheduled Albuterol Hfa (Ventolin Hfa), 2 PUFFS INH QID Cephalexin Monohydrate (Keflex), 500 MG PO QID Sulfa/Trimethoprim (Bactrim Ds 800MG/160MG), 1 TAB PO BID Scheduled PRN Ibuprofen Tab (Motrin), 600 MG PO Q6H PRN for Pain Allergies Coded Allergies: No Known Allergies (Unverified , 06/15/17) Vital Signs Date Time Temp Pulse Resp B/P (MAP) Pulse Ox O2 Delivery O2 Flow Rate FiO2 06/15/17 09:14 36.5 71 16 136/89 99 Room Air Departure Information Impression Primary Impression: Abscess Additional Impression: Change or removal of wound packing Dispostion Home / Self-Care Condition GOOD Referrals No Doctor, Assigned (PCP) Patient Instructions ED Abscess Mariluz, Sidra [facility] Additional Instructions You were seen in the ED today for removal of the Everett drain which was placed on Wednesday. This was successfully removed and packing replaced with iodoform packing. Please take Bactrim as prescribed, as the culture did grow MRSA. Return in 24-48 hours for removal of packing and possible replacement. Change the outer bandage if it becomes saturated. Please do not get the wound wet or soak in water. Return to the ED for worsening redness, swelling, pain, fever, chills, nausea, vomiting, ongoing purulent drainage, or other concerning symptoms. Problem Qualifiers
== END 2017-06-15 10:10 | disposition home or self-care (01) ==
LOC: C.EDB 09:12 → C.EDC 10:10
DX: L02.415 Cutaneous abscess of right lower limb (principal)

== ENCOUNTER 2017-06-17 12:19 | Emergency (ER) | payer SELFPAY ==
[~2017-06-17] VITALS: Ht 185.4 cm; Wt 99.4 kg
[~2017-06-17 12:19] MED LIST changes: -AZITTAB PO; -METH4PAK PO
[2017-06-17 12:34] VITALS: BP 132/82; PULSE 93; TEMP 36.7; O2SAT 98; Ht 185.4 cm; Wt 99.4 kg
--- NOTE | 2017-06-17 13:00 | EMERGENCY ROOM VISIT NOTE ---
ED Visit Note First contact with patient: 12:38 CHIEF COMPLAINT: Packing removal HISTORY OF PRESENT ILLNESS: This 32-year-old male patient presents to the emergency department ambulatory for packing removal of an abscess of the right thigh. Previous care outlined has been followed without difficulty. Patient has been taking Bactrim as prescribed. REVIEW OF SYSTEMS: A 6 system review of systems was completed with positives and pertinent negatives listed in the HPI. ALLERGIES: No known drug allergies MEDICATIONS: No chronic medications PMH: Unchanged from previous visit. PHYSICAL EXAM: Vital Signs reviewed, see Nurse's notes. Patient is afebrile, vital signs stable. GENERAL: This is a 32-year-old male, awake, alert, well appearing, no acute distress SKIN: Packing is in place to the right thigh. There is no continued purulent discharge. The redness has decreased. The wound is healing well. NEURO: No sensory or motor deficits noted. EMERGENCY DEPARTMENT COURSE AND DECISION MAKING: I examined the patient. The packing was removed from right thigh. The wound is healing well. Patient was encouraged to continue the Bactrim and warm compresses. He will return for any worsening or new/concerning symptoms. Discharge instructions reviewed. Discharged in stable condition. DIAGNOSIS: Packing removal TREATMENT PLAN: Continue treatment as previously outlined. Warm compresses to continue to expel pus. Followup with surgeon for persistent abscess or return of the abscess. Problem List Medical Problems: (1) Acute bronchitis Status: Resolved (2) Esophagitis Status: Resolved (3) Pneumonia Status: Resolved (4) Reactive airway disease Status: Resolved Current/Historical Medications No Active Prescriptions or Reported Meds Allergies Coded Allergies: No Known Allergies (Unverified , 06/17/17) Vital Signs Date Time Temp Pulse Resp B/P (MAP) Pulse Ox O2 Delivery O2 Flow Rate FiO2 06/17/17 12:34 36.7 93 18 132/82 98 Room Air Departure Information Impression Primary Impression: Encounter for abscess packing removal Dispostion Home / Self-Care Condition GOOD Prescriptions No Active Prescriptions or Reported Meds Referrals No Doctor, Assigned (PCP) Patient Instructions My [facility] Additional Instructions Continue treatment as previously outlined. Warm compresses to continue to expel pus. Followup with surgeon for persistent abscess or return of the abscess.
== END 2017-06-17 13:02 | disposition home or self-care (01) ==
LOC: C.EDB 12:20 → C.EDD 13:02
DX: Z09 Encounter for follow-up examination after completed treatment for conditions other than malignant neoplasm (principal); L02.415 Cutaneous abscess of right lower limb; Z87.01 Personal history of pneumonia (recurrent)

== ENCOUNTER 2017-08-26 08:16 | Emergency (ER) | payer SELFPAY ==
[~2017-08-26] VITALS: Ht 182.9 cm; Wt 99.7 kg
[~2017-08-26 08:16] MED LIST changes: -CEPH500C PO; -IBUP-1427 PO; -SULF800T23 PO
[2017-08-26 08:28] VITALS: TEMP 36.7; Ht 182.9 cm; Wt 99.7 kg
[2017-08-26 09:00] VITALS: O2SAT 97
[2017-08-26] MEDS ORDERED: ALBUT/IPRATROP 3MG/0.5MG NEB 3 ML VIAL INH ONE (09:00)
[2017-08-26 09:23] LABS: BASO % 0.4 %; BASO ABS # 0.03 K/uL (0-0.2); COMPLETE YES; EOS % 16.9 %; IG% 0.3 %; LYMPH % 33.3 %; MEAN CELL VOLUME 86.5 fL (80-100); MEAN CORPUSCULAR HEMOGLOBIN 30.2 pg (25-34); MEAN CORPUSCULAR HGB CONC 34.9 g/dl (32-36); MEAN PLATELET VOLUME 9.1 fL (7.4-10.4); MONO % 7.2 %; NEUT % 41.9 %; PLATELET COUNT 240 K/uL (130-400); RED BLOOD COUNT 4.74 M/uL (4.7-6.1)
--- NOTE | 2017-08-26 09:24 | DIAGNOSTIC IMAGING REPORT ---
CHEST 2 VIEWS ROUTINE HISTORY: 32 years-old Male cough, wheezing acute cough and wheezing with bronchitis COMPARISON: Chest radiograph 07/11/2017 TECHNIQUE: PA and lateral views of the chest FINDINGS: Cardiomediastinal and hilar silhouettes are within normal limits. No pneumothorax, pleural effusion, focal airspace consolidation or overt pulmonary edema. The bones of the chest are grossly intact. IMPRESSION: No acute cardiopulmonary process. The above report was generated using voice recognition software. It may contain grammatical, syntax or spelling errors. Electronically signed by: Jose Hill M.D. 08/26/2017 9:22 AM Dictated Date/Time: 08/26/2017 9:22 AM
[2017-08-26 09:42] LABS: BUN/CREATININE RATIO 11.9 (10-20); CALCIUM 9.4 mg/dl (8.5-10.1); POTASSIUM 4.1 mmol/L (3.5-5.1)
[2017-08-26] MEDS ORDERED: BENZ100C18 PO (10:13)
[2017-08-26] MEDS ORDERED: PRED20TA2 PO (10:13)
[2017-08-26 10:27] VITALS: BP 133/65; PULSE 72; O2SAT 97
--- NOTE | 2017-08-26 12:46 | EMERGENCY ROOM VISIT NOTE ---
ED Visit Note First contact with patient: 08:35 Chief Complaint: Cough. History of Present Illness: Mr. Sanchez is a 32-year-old white male who ambulates into the ED complaining of cough, shortness of breath and chest tightness. Patient reports as a child he was diagnosed with asthma and over the last 6 months he has been having ongoing issues with bronchitis. He has been seen in the emergency department 2 other times and diagnosed with pneumonia and bronchitis. He reports he does not have a family physician so he has not been able to follow-up. He reports in the past he has been treated with antibiotics , steroids and an albuterol inhaler and has been doing well. Patient reports approximately one week ago he started developing a mildly productive cough of yellowish sputum. A couple days later he started developing shortness of breath and chest tightness. He has been using his inhalers and has had relief of his symptoms but it continues. He has noted physical activity does increases coughing and subsequently his wheezing and shortness of breath. As previously noted he has been using his inhaler of albuterol without a spacer and has relief immediately after using the inhaler. He denies any associated fevers, chills, sweats, skin eruptions, skin color changes, hemoptysis, chest pain, palpitations, orthopnea, dependent edema, previous clots, claudication, cramping, recent surgery/extended travel, abdominal pain, nausea, vomiting. Review of Systems: As noted above in history of present illness. All body systems were reviewed and found to be negative as noted above. Past Medical History: As noted above and unspecified skin disorder and I&D of abscesses. Current Medications: Albuterol. Allergies to Medications: Patient denies. Social History: Patient is currently employed; he feels safe in his home environment; he admits to tobacco and alcohol use. Physical Examination: Vital Signs: Date Time Temp Pulse Resp B/P (MAP) Pulse Ox O2 Delivery O2 Flow Rate FiO2 08/26/17 10:27 72 17 133/65 97 08/26/17 09:05 66 08/26/17 09:00 97 Room Air 08/26/17 09:00 97 Room Air 08/26/17 08:28 36.7 85 17 125/88 97 Room Air GENERAL: 32-year-old male in acute distress, nontoxic-appearing, afebrile and hemodynamically stable. NEUROLOGICAL: Awake, alert and oriented to person, place and time. Answering questions appropriately and following commands. Normal gait. Good hand eye coordination. No focal motor or sensory deficits. SKIN: Warm, dry and pink. HEENT: Atraumatic and normocephalic. PERRLA. Sclera white and conjunctiva pink. No drainage from naris. Oral cavity moist and pink. Airway is patent. Pharynx is nonerythematous or edematous. Speech normal and clear. No lymphadenopathy. Trachea midline. No jugular venous distention. No carotid bruits. BACK: No tenderness over the bony spine. THORAX: Lungs sounds are coarse in all thakur with scattered wheezing. Equal bilaterally with symmetrical chest wall. No rales or rhonchi. No crepitus, tenderness, subcutaneous air or deformities noted. HEART: Regular rate and rhythm. No gallops, rubs or murmurs are appreciated. ABDOMEN: Flat, soft and nontender. Positive bowel sounds in all quadrants. No guarding, rigidity or organomegaly. EXTREMITIES: Moves all extremities well on command and with purpose. All distal neurovascular statuses are intact and equal bilaterally. No calf tenderness or cords. ED Course: Patient is assessed as noted above. Patient's medication list was reviewed. Laboratory Testing: Test 08/26/17 09:05 Range/Units White Blood Count 7.80 4.8-10.8 K/uL Red Blood Count 4.74 4.7-6.1 M/uL Hemoglobin 14.3 14.0-18.0 g/dL Hematocrit 41.0 42-52 % Mean Corpuscular Volume 86.5 80-100 fL Mean Corpuscular Hemoglobin 30.2 25-34 pg Mean Corpuscular Hemoglobin Concent 34.9 32-36 g/dl Platelet Count 240 130-400 K/uL Mean Platelet Volume 9.1 7.4-10.4 fL Neutrophils (%) (Auto) 41.9 % Lymphocytes (%) (Auto) 33.3 % Monocytes (%) (Auto) 7.2 % Eosinophils (%) (Auto) 16.9 % Basophils (%) (Auto) 0.4 % Neutrophils # (Auto) 3.27 1.4-6.5 K/uL Lymphocytes # (Auto) 2.60 1.2-3.4 K/uL Monocytes # (Auto) 0.56 0.11-0.59 K/uL Eosinophils # (Auto) 1.32 0-0.5 K/uL Basophils # (Auto) 0.03 0-0.2 K/uL RDW Standard Deviation 42.0 36.4-46.3 fL RDW Coefficient of Variation 13.3 11.5-14.5 % Immature Granulocyte % (Auto) 0.3 % Immature Granulocyte # (Auto) 0.02 0.00-0.02 K/uL Sodium Level 140 136-145 mmol/L Potassium Level 4.1 3.5-5.1 mmol/L Chloride Level 107 98-107 mmol/L Carbon Dioxide Level 27 21-32 mmol/L Anion Gap 6.0 3-11 mmol/L Blood Urea Nitrogen 12 7-18 mg/dl Creatinine 1.00 0.60-1.40 mg/dl Est Creatinine Clear Calc Drug Dose 127.3 ml/min Estimated GFR () 113.3 Estimated GFR (Non- 97.8 BUN/Creatinine Ratio 11.9 10-20 Random Glucose 107 70-99 mg/dl Calcium Level 9.4 8.5-10.1 mg/dl Troponin I < 0.015 0-0.045 ng/ml EKG: Was read by myself and shows sinus bradycardia with a ventricular rate of 51 bpm. Normal axis, intervals and complexes. No acute ST changes indicating ischemia, injury or infarction. This was compared to previous from May 2017 and no acute changes were noted. Chest X-Rays: Was read by myself and the radiologist showing no acute infiltrates, effusions or pneumothorax. Normal heart silhouette and bony anatomy. This was compared to previous and no acute changes were noted. Patient was treated with an albuterol/Atrovent nebulizer breathing treatment and 60 mg of prednisone by mouth. On reassessment he subjectively reported he was feeling much better. On reevaluation of his lungs he had complete resolution of wheezing and improved air movement. Patient was educated about today's findings and instructed on his treatment plan ; he verbalizes understanding and agreement with this plan. Clinical Impression: Recurrent bronchitis. Decision-Making: Initially my differential diagnosis I considered bronchitis, pneumonia, asthma exacerbation, pneumothorax, pulmonary embolism and other causes. Disposition: Patient discharged home in stable condition accompanied by female friends; prior to departure he was reassessed and subjectively reported he was still feeling better. Plan: Patient was encouraged use 2 puffs of his albuterol inhaler every 4 hours for the next 5 days and as needed for severe coughing episode, shortness of breath or wheezing. Additionally he was discharged home with a spacer and instructed on achieves. Patient was prescribed prednisone 60 mg once a day for 4 additional days. Patient was prescribed Tessalon Perles 100 mg every 8 hours as needed for cough. Patient was encouraged to stay well-hydrated with increased clear fluids. Patient was encouraged to stop all tobacco use. Patient was encouraged to follow-up with [facility] for continued care and treatment until he was able to obtain medical assistance. Patient was encouraged return ED for worsening cough, worsening wheezing, coughing up blood, fevers or any new/concerning symptoms.
== END 2017-08-26 10:28 | disposition home or self-care (01) ==
LOC: C.EDB 08:16 → C.EDA 10:28
DX: J40 Bronchitis, not specified as acute or chronic (principal); F17.200 Nicotine dependence, unspecified, uncomplicated

== ENCOUNTER 2017-09-18 12:31 | Emergency (ER) | payer OTHER ==
[~2017-09-18] VITALS: Ht 185.4 cm; Wt 101.8 kg
[~2017-09-18 12:31] MED LIST changes: +PRED20TA2 PO
[2017-09-18 12:42] VITALS: TEMP 36.8; Ht 185.4 cm; Wt 101.8 kg
[2017-09-18] MEDS ORDERED: ALBUT/IPRATROP 3MG/0.5MG NEB 3 ML VIAL INH STA (13:06)
--- NOTE | 2017-09-18 13:38 | DIAGNOSTIC IMAGING REPORT ---
CHEST 2 VIEWS ROUTINE CLINICAL HISTORY: cough, wheezing dyspnea COMPARISON STUDY: No previous studies for comparison. FINDINGS: The bones soft tissues and hemidiaphragms are normal. The cardiomediastinal silhouette is normal. The lungs are clear. The pulmonary vasculature is normal. IMPRESSION: Negative chest. The above report was generated using voice recognition software. It may contain grammatical, syntax or spelling errors. Electronically signed by: Raoul Gore M.D. 09/18/2017 1:37 PM Dictated Date/Time: 09/18/2017 1:36 PM
[2017-09-18] MEDS ORDERED: DOXY100C PO ×2 (14:01→14:08)
[2017-09-18] MEDS ORDERED: VNTHFA/IN INH ×2 (14:01→14:08)
[2017-09-18 14:19] VITALS: BP 125/74; PULSE 70; O2SAT 93
--- NOTE | 2017-09-18 19:48 | EMERGENCY ROOM VISIT NOTE ---
History First contact with patient: 12:52 Chief Complaint: COUGH Stated Complaint: BAD COUGH & WHEEZING Nursing Triage Summary: pt reports I was treated for this cough 1 month ago and was treated with prednison , I have a lot of mucus production it is white and thick I have ran out of my inhalers and this is why I am here today History of Present Illness The patient is a 32 year old male who presents to the Emergency Room with complaints of worsening productive cough and wheezing. The patient reports that he has had the symptoms now for a week. He reports frequent visits to emergency department for similar symptoms. He has been diagnosed with pneumonia and bronchitis in the recent past. The patient denies history of asthma. He does not smoke cigarettes. He denies any significant seasonal allergies. She has not noticed any fever or chills, and denies any chest pain. Review of Systems 10 system review was performed and was negative except for pertinent positives and negatives as indicated in history of present illness Past Medical/Surgical History Medical Problems: (1) Acute bronchitis (2) Esophagitis (3) Pneumonia (4) Reactive airway disease Family History Cancer Diabetes mellitus Hypertension Seizures Social History Smoking Status: Never Smoker Alcohol Use: none Drug Use: none Housing Status: lives alone Occupation Status: employed Current/Historical Medications Scheduled Albuterol Hfa (Ventolin Hfa), 2 PUFFS INH QID Albuterol Hfa (Ventolin Hfa), 2 PUFFS INH QID Doxycycline Hyclate (Vibramycin), 100 MG PO BID Physical Exam Vital Signs Date Time Temp Pulse Resp B/P (MAP) Pulse Ox O2 Delivery O2 Flow Rate FiO2 09/18/17 14:19 70 20 125/74 93 09/18/17 12:42 36.8 77 20 121/83 95 Room Air Physical Exam CONSTITUTIONAL: Healthy and well nourished. Alert and oriented X 3 with positive affect. Patient does not appear in any acute respiratory distress, nor did he have any significant cough while in the emergency department. HEENT: Normocephalic, atraumatic. Pupils equal, round and reactive. NECK: Full active range of motion without discomfort. No JVD or carotid bruits. RESPIRATORY: Auscultation shows significant expiratory wheezing in all thakur with rhonchi over the bronchial tree. No stridor. CARDIOVASCULAR: Regular rate and rhythm with no murmurs, rubs or gallops. GASTROINTESTINAL: Bowel sounds present in all quadrants. MUSCULOSKELETAL: Full range of motion of all joints without discomfort. INTEGUMENTARY: No rash or other significant dermatologic conditions noted. NEUROLOGIC: No focal neurologic deficits noted. Medical Decision & Procedures ER Provider Diagnostic Interpretation: My interpretation of a two-view chest x-ray does not show any consolidations or pneumothorax. Radiologist report is as follows: CHEST 2 VIEWS ROUTINE CLINICAL HISTORY: cough, wheezing dyspnea COMPARISON STUDY: No previous studies for comparison. FINDINGS: The bones soft tissues and hemidiaphragms are normal. The cardiomediastinal silhouette is normal. The lungs are clear. The pulmonary vasculature is normal. IMPRESSION: Negative chest. Medications Administered Medications (Trade) Dose Ordered Sig/Ben Route Start Time Stop Time Status Last Admin Dose Admin Albuterol/ Ipratropium (Duoneb) 3 ml NOW STAT INH 09/18/17 13:06 09/18/17 13:07 DC 09/18/17 13:13 3 ML ED Course Patient history and physical exam were performed. Nurse's notes were reviewed. Vital signs were reviewed and were normal. The patient is afebrile, and O2 saturation is 95% on room air. Pretreatment flow was 250. The patient was administered a unit dose DuoNeb treatment with significant reduction of his wheezing. A two-view chest x-ray was normal. Review of prior medical records shows that the patient has been seen here on 4 previous visits since April. He was diagnosed twice with pneumonia, and twice with bronchitis. The patient reports that he recently was approved for medical assistance, but will not get his card for another week or 2. After the patient finds a PCP, I did encourage him to ask for a pulmonology referral given the frequency of his upper respiratory infections. The patient was provided prescriptions for doxycycline 100 mg twice a day 10 days, and a Ventolin metered-dose inhaler with a refill. The patient reports that he has an AeroChamber at home. The patient was instructed to return to the emergency department for any progressively worsening symptoms. The patient was happy with plan of care, voice understanding of all discharge instructions, and denied any significant discomfort, chest pain or shortness of breath at the time of discharge. Medical Decision Medication Reconcilliation Current Medication List: was personally reviewed by me Blood Pressure Screening Patient's blood pressure: Normal blood pressure Impression Primary Impression: Acute bronchitis Departure Information Prescriptions Doxycycline Hyclate (VIBRAMYCIN) 100 Mg Cap 100 MG PO BID for 10 Days, #20 CAP Prov: Jurgen Pena PA 09/18/17 Albuterol Hfa (VENTOLIN HFA) 200 Puffs/76506 Mcg Aers 2 PUFFS INH QID, #1 INHALER 1 Refill Prov: Jurgen Pena PA 09/18/17 Referrals No Doctor, Assigned (PCP) Patient Instructions My [facility] Problem Qualifiers Primary Impression: Acute bronchitis Bronchitis organism: unspecified organism Qualified Codes: J20.9 - Acute bronchitis, unspecified
== END 2017-09-18 14:21 | disposition home or self-care (01) ==
LOC: C.EDB 12:31 → C.EDD 14:21
DX: J20.9 Acute bronchitis, unspecified (principal); Z83.3 Family history of diabetes mellitus; Z82.49 Family history of ischemic heart disease and other diseases of the circulatory system; Z82.0 Family history of epilepsy and other diseases of the nervous system

== ENCOUNTER 2017-09-23 23:13 | Emergency (ER) | payer OTHER ==
[~2017-09-23] VITALS: Ht 185.4 cm; Wt 102.2 kg
[~2017-09-23 23:13] MED LIST changes: +DOXY100C PO; -PRED20TA2 PO
[2017-09-23 23:19] VITALS: BP 131/77; TEMP 36.7; Ht 185.4 cm; Wt 102.2 kg
[2017-09-24] MEDS ORDERED: ALBUT/IPRATROP 3MG/0.5MG NEB 3 ML VIAL INH ONE (00:30)
[2017-09-24] MEDS ORDERED: DEXAMETHASONE SOD INJ 4 MG/ML 5 ML VIAL IM ONE (00:30)
[2017-09-24] MEDS ORDERED: AZITHROMYCIN 250 MG TAB PO ONE (00:30)
[2017-09-24] MEDS ORDERED: DEXAMETHASONE **PF** INJ 10 MG/ML VIAL ONE (00:41)
[2017-09-24] MEDS ORDERED: AZIT250T PO (00:47)
[2017-09-24 01:03] VITALS: PULSE 54; O2SAT 97
--- NOTE | 2017-09-27 22:56 | EMERGENCY ROOM VISIT NOTE ---
History First contact with patient: 00:16 Chief Complaint: COUGH Stated Complaint: WHEEZING,COUGH,POSSIBLY ALLERGIC TO MEDS GIVEN Nursing Triage Summary: cough since wednesday History of Present Illness The patient is a 32 year old male who presents to the Emergency Room with complaints of coughing and wheezing for the past several days. The patient has a history of bronchitis and was started on doxycycline from the emergency department a few days ago. The patient has taken a few doses of the medication and feels like he is worsening. The patient has been using albuterol inhaler which does improve his symptoms. He states that he is allergic to prednisone but does well with IM steroids. The patient is requesting a different antibiotic. He rates his overall discomfort a 5/10. Review of Systems More than 10 systems were reviewed and otherwise negative with the exception of history of present illness. Past Medical/Surgical History Medical Problems: (1) Acute bronchitis (2) Esophagitis (3) Pneumonia (4) Reactive airway disease Family History Cancer Diabetes mellitus Hypertension Seizures Social History Smoking Status: Former Smoker Alcohol Use: none Drug Use: none Housing Status: lives alone Occupation Status: employed Current/Historical Medications Scheduled Albuterol Hfa (Ventolin Hfa), 2 PUFFS INH QID Albuterol Hfa (Ventolin Hfa), 2 PUFFS INH QID Azithromycin (Zithromax), 250 MG PO DAILY Doxycycline Hyclate (Vibramycin), 100 MG PO BID Physical Exam Vital Signs Date Time Temp Pulse Resp B/P (MAP) Pulse Ox O2 Delivery O2 Flow Rate FiO2 09/24/17 01:03 54 97 09/23/17 23:19 36.7 83 20 131/77 94 Room Air Physical Exam VITALS: Vitals are noted on the nurse's note and reviewed by myself. Vital signs stable. GENERAL: Well-developed, well-nourished, white male, who is in no acute distress and resting comfortably. Patient is cooperative with the examination. HEAD: Normocephalic atraumatic. NECK: Supple without nuchal rigidity. No lymphadenopathy. No thyromegaly. Cervical spine is nontender. HEART: Regular rate and rhythm without murmurs gallops or rubs. LUNGS: Diffuse wheezing and rhonchi throughout ABDOMEN: Positive normal bowel sounds x 4. Soft, nontender, without masses or organomegaly. Medical Decision & Procedures Medications Administered Medications (Trade) Dose Ordered Sig/Ben Route Start Time Stop Time Status Last Admin Dose Admin Albuterol/ Ipratropium (Duoneb) 3 ml NOW ONCE INH 09/24/17 00:30 09/24/17 00:31 DC 09/24/17 00:44 3 ML Azithromycin (Zithromax Tab) 500 mg NOW ONCE PO 09/24/17 00:30 09/24/17 00:31 DC 09/24/17 00:45 500 MG Dexamethasone Sodium Phosphate (Dexamethasone Inj Pf) 10 mg STK-MED ONCE .ROUTE 09/24/17 00:41 09/24/17 00:42 DC 09/24/17 00:45 10 MG ED Course Physical exam and history were performed. Nursing notes, EMR, and Medication List were personally reviewed. Patient appears to have acute bronchitis that was diagnosed about 5 days ago here in the department. The patient has had relief with albuterol. He is not doing well with doxycycline, and would like a different antibiotic. On examination he does have diffuse wheezing and rhonchi throughout. The patient was given IM Decadron as well as a breathing treatment here in the department. I will transition him to Zithromax and give him a continuation prescription. He states that he just got insurance and is to follow with a primary care physician for further care and management. He was otherwise invited back to the ER with any new, worsening, or concerning symptoms. The chart was completed utilizing [employer] Speech Voice Recognition Software. Grammatical errors, random word insertions, pronoun errors, and incomplete sentences are an occasional consequence of this system due to software limitations, ambient noise, and hardware issues. Any formal questions or concerns about the content, text, or information contained within the body of this dictation should be directly addressed to the provider for clarification. . Medical Decision Differential diagnosis: Etiologies such as infections, reactive airway disease, pneumonia, pneumothorax , COPD, CHF, cardiac ischemia, pulmonary embolism, musculoskeletal, gastrointestinal, as well as others were entertained. Impression Primary Impression: Acute bronchitis Departure Information Dispostion Home / Self-Care Condition GOOD Prescriptions Azithromycin (Zithromax) 250 Mg Tab 250 MG PO DAILY for 4 Days, #4 TAB Prov: Chago Hugo PA-C 09/24/17 Referrals No Doctor, Assigned (PCP) Forms HOME CARE DOCUMENTATION FORM, IMPORTANT VISIT INFORMATION Patient Instructions My [facility] Additional Instructions You were seen and evaluated today on an emergency basis only. This is not a substitute for, or an effort to provide, complete comprehensive medical care. It is not possible to recognize and treat all injuries or illnesses in a single emergency department visit. For this reason it is recommended that you followup with a primary care physician as soon as possible for recheck of your condition. Continue your inhaler at home. Take Zithromax 250 mg daily for the next 4 days You are welcome to return to the emergency department anytime with new, worsening, or concerning symptoms.
== END 2017-09-24 01:04 | disposition home or self-care (01) ==
LOC: C.EDB 23:15 → C.EDC 09-24 01:04
DX: J20.9 Acute bronchitis, unspecified (principal); R06.2 Wheezing; R05 Cough; Z87.891 Personal history of nicotine dependence

== ENCOUNTER 2017-10-02 02:02 | Emergency (ER) | payer OTHER ==
[~2017-10-02] VITALS: Ht 185.4 cm; Wt 100.7 kg
[2017-10-02 02:07] VITALS: TEMP 36.6; Ht 185.4 cm; Wt 100.7 kg
[2017-10-02] MEDS ORDERED: MAGNESIUM SULFATE 1GM / D5W 1 GM BAG IV STA (02:27)
[2017-10-02] MEDS ORDERED: METHYLPREDNISOLONE 125 MG VIAL IV STA (02:27)
[2017-10-02] MEDS ORDERED: ALBUT/IPRATROP 3MG/0.5MG NEB 3 ML VIAL INH ONE (02:30)
--- NOTE | 2017-10-02 02:40 | EMERGENCY ROOM VISIT NOTE ---
History Report prepared by Kay: Russel Joseph Under the Supervision of: Dr. Baljit Dumont M.D. First contact with patient: 02:19 Chief Complaint: RESPIRATORY PROBLEMS Stated Complaint: CAN'T BREATHE History of Present Illness The patient is a 32 year old male who presents to the Emergency Room with complaints of worsening respiratory problems that began recently. Patient has associated symptoms of shortness of breath. Patient states he was in the ED for similar symptoms a week ago. Patient states that his inhaler ran out this morning. He states he will see a barratte operator for the first time next week. Patient states he has treated his respiratory problems in the past with a Decadron shot, Zithromax, and prednisone. He states that prednisone caused him to break out after he stopped taking it. Source of History: patient Onset: Recently Position: chest Timing: worsening Associated Symptoms: + SOB Review of Systems See HPI for pertinent positives & negatives. A total of 10 systems reviewed and were otherwise negative. Past Medical & Surgical Medical Problems: (1) Acute bronchitis (2) Esophagitis (3) Pneumonia (4) Reactive airway disease Family History Cancer Diabetes mellitus Hypertension Seizures Social History Smoking Status: Former Smoker Alcohol Use: none Drug Use: none Housing Status: lives alone Occupation Status: employed Current/Historical Medications Scheduled Albuterol Hfa (Ventolin Hfa), 2 PUFFS INH QID Doxycycline Hyclate (Vibramycin), 100 MG PO BID Methylprednisolone (Medrol Dosepak), 1 PKT PO UD Allergies Coded Allergies: Prednisone (Verified Allergy, Unknown, HIVES, RASH, 09/23/17) Physical Exam Vital Signs Date Time Temp Pulse Resp B/P (MAP) Pulse Ox O2 Delivery O2 Flow Rate FiO2 10/02/17 04:03 99 20 128/78 99 Room Air 10/02/17 03:02 98 Room Air 10/02/17 03:02 Room Air 10/02/17 03:02 98 Room Air 10/02/17 02:49 86 26 98 Room Air 10/02/17 02:07 36.6 104 20 144/88 96 Room Air Physical Exam GENERAL: Patient is a healthy-appearing well-nourished in mild distress HEAD: Normocephalic atraumatic EYES: Ocular movements intact pupils equal and react to light OROPHARYNX mucous membranes are moist no exudates present no erythema or edema present NECK: Supple no nuchal rigidity, no stridor CHEST: Good equal expansion LUNGS: Diffuse wheezing throughout CARDIAC: Normal S1 and S2 ABDOMEN: Soft nontender no guarding BACK: No CVA tenderness EXTREMITIES: No pain upon palpation normal muscle strength in all groups no clubbing cyanosis or edema NEURO: Patient is following commands is answering questions appropriately. Alert and oriented x3 Cranial Nerves 2-12 grossly intact Medical Decision & Procedures ER Provider Diagnostic Interpretation: A 1 view of the chest was interpreted by me shows no evidence of pneumonia congestion and pneumothorax. Laboratory Results 10/02/17 03:00 Red Blood Count 5.11, Mean Corpuscular Volume 86.1, Mean Corpuscular Hemoglobin 29.7, Mean Corpuscular Hemoglobin Concent 34.5, Mean Platelet Volume 8.9, Neutrophils (%) (Auto) 71.7, Lymphocytes (%) (Auto) 14.6, Monocytes (%) (Auto) 6.7, Eosinophils (%) (Auto) 6.6, Basophils (%) (Auto) 0.2, Neutrophils # (Auto) 9.09, Lymphocytes # (Auto) 1.85, Monocytes # (Auto) 0.85, Eosinophils # (Auto) 0.84, Basophils # (Auto) 0.02 10/02/17 03:00 Test 10/02/17 03:00 10/02/17 03:10 White Blood Count 12.68 K/uL (4.8-10.8) Red Blood Count 5.11 M/uL (4.7-6.1) Hemoglobin 15.2 g/dL (14.0-18.0) Hematocrit 44.0 % (42-52) Mean Corpuscular Volume 86.1 fL (80-100) Mean Corpuscular Hemoglobin 29.7 pg (25-34) Mean Corpuscular Hemoglobin Concent 34.5 g/dl (32-36) Platelet Count 328 K/uL (130-400) Mean Platelet Volume 8.9 fL (7.4-10.4) Neutrophils (%) (Auto) 71.7 % Lymphocytes (%) (Auto) 14.6 % Monocytes (%) (Auto) 6.7 % Eosinophils (%) (Auto) 6.6 % Basophils (%) (Auto) 0.2 % Neutrophils # (Auto) 9.09 K/uL (1.4-6.5) Lymphocytes # (Auto) 1.85 K/uL (1.2-3.4) Monocytes # (Auto) 0.85 K/uL (0.11-0.59) Eosinophils # (Auto) 0.84 K/uL (0-0.5) Basophils # (Auto) 0.02 K/uL (0-0.2) RDW Standard Deviation 40.9 fL (36.4-46.3) RDW Coefficient of Variation 13.0 % (11.5-14.5) Immature Granulocyte % (Auto) 0.2 % Immature Granulocyte # (Auto) 0.03 K/uL (0.00-0.02) Anion Gap 3.0 mmol/L (3-11) Est Creatinine Clear Calc Drug Dose 131.2 ml/min Estimated GFR () 114.7 Estimated GFR (Non- 99.0 BUN/Creatinine Ratio 17.1 (10-20) Calcium Level 9.5 mg/dl (8.5-10.1) Total Bilirubin 0.4 mg/dl (0.2-1) Aspartate Amino Transf (AST/SGOT) 14 U/L (15-37) Alanine Aminotransferase (ALT/SGPT) 33 U/L (12-78) Alkaline Phosphatase 106 U/L (45-117) Total Protein 8.4 gm/dl (6.4-8.2) Albumin 4.4 gm/dl (3.4-5.0) Globulin 4.0 gm/dl (2.5-4.0) Albumin/Globulin Ratio 1.1 (0.9-2) Influenza Type A Antigen Neg for Influ A (NEG) Influenza Type B Antigen Neg for Influ B (NEG) Medications Administered Medications (Trade) Dose Ordered Sig/Ben Route Start Time Stop Time Status Last Admin Dose Admin Albuterol/ Ipratropium (Duoneb) 12 ml ONE ONCE INH 10/02/17 02:30 10/02/17 02:31 DC 10/02/17 02:49 12 ML Methylprednisolone Sodium Succinate (Solu-Medrol IV) 125 mg NOW STAT IV 10/02/17 02:27 10/02/17 02:29 DC 10/02/17 02:57 125 MG Magnesium Sulfate (Magnesium Sulfate) 1 gm NOW STAT IV 10/02/17 02:27 10/02/17 02:29 DC 10/02/17 02:57 1 GM Albuterol (Ventolin Hfa Inhaler) 2 puffs NOW ONCE INH 10/02/17 03:30 10/02/17 03:31 DC 10/02/17 03:42 2 PUFFS ED Course 0225: Past medical records reviewed. The patient was evaluated in room B6. A complete history and physical examination was performed. Medical Decision This is a 32-year-old male who presents emergency department complaining of acute asthma exacerbation. The patient was given an hour-long breathing treatment in the emergency department and started on Solu-Medrol. He did not tolerate BiPAP however the patient markedly improved. He feels he is well enough to be discharged home. The patient is going to follow-up with pulmonology. He was given an inhaler for home and I will trial him on a Medrol Dosepak. Patient was in agreement with the treatment plan. Impression Primary Impression: Reactive airway disease Scribe Attestation The scribe's documentation has been prepared under my direction and personally reviewed by me in its entirety. I confirm that the note above accurately reflects all work, treatment, procedures, and medical decision making performed by me. Departure Information Dispostion Home / Self-Care Prescriptions Methylprednisolone (MEDROL DOSEPAK) 4 Mg Onur 1 PKT PO UD for 6 Days, #1 PKT Prov: Baljit Dumont MD 10/02/17 Referrals No Doctor, Assigned (PCP) Patient Instructions My [facility] Problem Qualifiers Primary Impression: Reactive airway disease Asthma severity: mild Asthma persistence: unspecified Qualified Codes: J45.909 - Unspecified asthma, uncomplicated
[2017-10-02 02:49] VITALS: PULSE 86; O2SAT 98
[2017-10-02 03:02] VITALS: O2SAT 98
[2017-10-02 03:09] LABS: BASO % 0.2 %; BASO ABS # 0.02 K/uL (0-0.2); EOS % 6.6 %; EOS ABS # 0.84 K/uL (0-0.5); HEMOGLOBIN 15.2 g/dL (14.0-18.0); IG# 0.03 K/uL (0.00-0.02); LYMPH % 14.6 %; LYMPH ABS # 1.85 K/uL (1.2-3.4); MEAN CELL VOLUME 86.1 fL (80-100); MEAN CORPUSCULAR HEMOGLOBIN 29.7 pg (25-34); MEAN CORPUSCULAR HGB CONC 34.5 g/dl (32-36); MEAN PLATELET VOLUME 8.9 fL (7.4-10.4); MONO % 6.7 %; MONO ABS # 0.85 K/uL (0.11-0.59); NEUT % 71.7 %; NEUT ABS # 9.09 K/uL (1.4-6.5); PLATELET COUNT 328 K/uL (130-400); RED CELL DISTRIBUTION WIDTH SD 40.9 fL (36.4-46.3); WHITE BLOOD COUNT 12.68 K/uL (4.8-10.8)
[2017-10-02 03:25] LABS: ALBUMIN 4.4 gm/dl (3.4-5.0); CALCIUM 9.5 mg/dl (8.5-10.1); CREATININE 0.99 mg/dl (0.60-1.40); POTASSIUM 3.7 mmol/L (3.5-5.1)
[2017-10-02 03:28] LABS: TOTAL PROTEIN 8.4 gm/dl (6.4-8.2)
[2017-10-02] MEDS ORDERED: ALBUTEROL HFA 8 GM INHALER INH ONE (03:30)
[2017-10-02 04:03] VITALS: BP 128/78; PULSE 99; O2SAT 99
[2017-10-02 04:11] LABS: INFLUENZA B ANTIGEN Neg for Influ B (NEG)
[2017-10-02] MEDS ORDERED: METH4PAK PO (04:25)
--- NOTE | 2017-10-02 09:45 | DIAGNOSTIC IMAGING REPORT ---
CHEST ONE VIEW PORTABLE CLINICAL HISTORY: Shortness of breath. COMPARISON STUDY: Chest radiograph September 18, 2017. FINDINGS: Lung volumes are normal. No pneumothorax or pleural effusion is noted. There is no consolidation to suggest pneumonia and there is no evidence of pulmonary edema. Cardiac size is normal. There is possible mild upper mediastinal widening. Right paratracheal stripe is prominent. IMPRESSION: 1. No acute cardiopulmonary findings. 2. Possible upper mediastinal widening. This is likely within normal limits however lymphadenopathy could have this appearance. A follow-up nonemergent chest CT is recommended. Electronically signed by: Souleymane Villa M.D. 10/02/2017 9:44 AM Dictated Date/Time: 10/02/2017 9:39 AM
== END 2017-10-02 04:43 | disposition home or self-care (01) ==
LOC: C.EDB 02:03
DX: J45.909 Unspecified asthma, uncomplicated (principal); K20.9 Esophagitis, unspecified; Z87.01 Personal history of pneumonia (recurrent); Z80.9 Family history of malignant neoplasm, unspecified; Z83.3 Family history of diabetes mellitus; Z82.49 Family history of ischemic heart disease and other diseases of the circulatory system; Z87.891 Personal history of nicotine dependence